=== PATIENT | female | born 1980 | race Caucasian/White ===

== ENCOUNTER 2017-08-17 08:39 | Day surgery (SDC) | payer OTHER ==
[2017-08-13 09:47] VITALS: BMI 30.2
[~2017-08-17 08:39] MED LIST: BUPIVACAINE HCL/PF 0.5% (5MG/ML) 10 ML VIAL PNB ONE
[2017-08-17] MEDS ORDERED: BUPIVACAINE HCL/PF 0.5% (5MG/ML) 10 ML VIAL ONE (09:34)
--- NOTE | 2017-08-17 09:36 | HP ---
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: Alzheimer's, CVA, Dementia, Migraine, Multiple Sclerosis, Peripheral Neuropathy, Parkinson's, Seizure, Syncope, TIA, Vertigo, Other Cardiovascular: Yes: Murmur Pulmonary: Yes: Bronchitis Gastrointestinal: No: Ascites, Cancer, Constipation, Crohn's Disease, Diverticulitis, Diverticulosis, Esophageal Varices, Gastritis, GERD, GI Bleed, Hemorrhoids, Hiatal Hernia, Inflamatory Bowel Disease, Irritable Bowel Disease, Pancreatitis, Peptic Ulcer Disease, Ulcerative Colitis, Other Hepatobiliary: No: Cirrhosis, Cholelithiasis, Cholecystitis, Choledocholithiasis , Hepatitis A, Hepatitis B, Hepatitis C, Other Renal/: No: Renal Failure, Renal Inusuff, BPH, Cancer, Hematuria, Hemodialysis , Neurogenic Bladder, Renal Calculi, UTI, Other Reproductive: Yes: Ectopic (tx's with MTX) ...Para: 1 ...Induced : 2 Heme/Onc: No: Anemia, B12 Deficiency, Bleeding Disorder, Cancer, Current Chemotherapy, Current Radiation Therapy, Hemochromatosis, Hypercoaguable State, Myeloproliferative Synd, Sickle Cell Disease, Sickle Cell Trait, Thrombocytopenia, Other Infectious Disease: No: AIDS, C-Diff, Herpes Zoster, HIV, MRSA, STD's, Tuberculosis, VREF, Other Psych: No: Addictions, Anxiety, Bipolar, Depression, Panic, Psychosis, Schizophrenia, Other Musculoskeletal: No: Bursitis, Chronic low back pain, Hemiparesis, Hemiplegia, Osteoarthritis, Paraplegia, Other Rheumatology: No: Fibromyalgia, Gout, Lupus, Rheumatoid Arthritis, Sarcoidosis, Vasculitis, Other ENT: No: Allergic Rhinitis, Sinusitis, Other Endocrine: No: [place]'s Disease, [place]'s Disease, Diabetes Insipidus, Diabetes Mellitus, Hyperparathyroidism, Hyperthyroidism, Hypothyroidism, Osteopenia, SIADH, Other Dermatology: No: Basal Cell, Cellulitis, Eczema, Melanoma, Psoriasis, Squamous Cell, Other Additional Medical History: Hyperlipidemia - Past Surgical History Past Surgical History: Yes: Hx Myomectomy: No Hx Transabdominal Cerclage: No - Smoking History Smoking history: Current some day smoker Have you smoked in the past 12 months: Yes Aproximately how many cigarettes per day: 5 - Alcohol/Substance Use Hx Alcohol Use: Yes (WINE) History of Substance Use: reports: None - Social History Usual Living Arrangement: Yes: With Parent, With Child ADL: Independent Occupation: Unemployed History of Recent Travel: No Home Medications - Allergies Allergies/Adverse Reactions: Allergies Allergy/AdvReac Type Severity Reaction Status Date / Time No Known Drug Allergies Allergy Verified 08/17/17 09:19 - Home Medications Home Medications: Ambulatory Orders NK [No Known Home Medication] 08/13/17 Family Disease History - Family Disease History Family Disease History: Other: Mother (endometriosis, Hep C) Review of Systems - Review of Systems Constitutional: reports: No Symptoms Eyes: reports: No Symptoms HENT: reports: No Symptoms Neck: reports: No Symptoms Cardiovascular: reports: No Symptoms Respiratory: reports: No Symptoms Gastrointestinal: reports: No Symptoms Genitourinary: reports: No Symptoms Breasts: reports: No Symptoms Reported Musculoskeletal: reports: No Symptoms Integumentary: reports: No Symptoms Neurological: reports: No Symptoms Endocrine: reports: No Symptoms Hematology/Lymphatic: reports: No Symptoms Psychiatric: reports: No Symptoms Pain Intensity: 2 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 Vital Signs: Vital Signs Temperature 98.7 F 08/17/17 09:17 Pulse Rate 87 08/17/17 09:17 Respiratory Rate 16 08/17/17 09:17 Blood Pressure 114/76 08/17/17 09:17 O2 Sat by Pulse Oximetry (%) 97 08/17/17 09:18 Constitutional: Yes: Well Nourished, No Distress, Calm Eyes: Yes: WNL, Conjunctiva Clear HENT: Yes: WNL, Atraumatic, Normocephalic Neck: Yes: WNL, Supple, Trachea Midline Cardiovascular: Yes: WNL, Regular Rate and Rhythm Respiratory: Yes: WNL, Regular, CTA Bilaterally Gastrointestinal: Yes: WNL, Normal Bowel Sounds, Soft ...Rectal Exam: Yes: WNL Renal/: Yes: WNL Pelvis: Yes: WNL External Genitalia: Yes: Normal Internal Exam Deferred: No Cervix: Yes: Normal Uterus: Yes: Normal Adnexa: Normal: Right, Left Musculoskeletal: Yes: WNL Extremities: Yes: WNL Edema: No Integumentary: Yes: WNL Neurological: Yes: WNL, Alert, Oriented ...Motor Strength: WNL Psychiatric: Yes: WNL, Alert, Oriented Imaging - Results Ultrasound: Report Reviewed Assessment/Plan 37yo P1 female with left pelvic pain, admitted for left ovarian cystectomy. We had discussed the risks, benefits, alternatives of surgery at length including but not limited to infection, bleeding, scarring, perforation, amenorrhea, infertility, hysterectomy, injury to surrounding/underlying organs or structure , need for additional surgery to repair/treat any complications, etc. I explained the risk and possible oophorectomy, recurrent cysts, open laparotomy. The patient verbalized understanding and requested to proceed with surgery. I emphasized that all surgeries have risks and no guarantees can be provided.
[2017-08-17] MEDS ORDERED: LIDOCAINE HCL/PF 2% SDV 5ML VIAL ONE (09:38)
[2017-08-17] MEDS ORDERED: DEXAMETHASONE SOD PHOSPHATE 4 MG/1 ML VIAL ONE ×2 (09:38→11:25)
[2017-08-17] MEDS ORDERED: MIDAZOLAM HCL 2 MG/2 ML SINGLE DOSE VIAL ONE (09:39)
[2017-08-17] MEDS ORDERED: ROCURONIUM BROMIDE 50 MG/5 ML VIAL ONE (09:39)
[2017-08-17] MEDS ORDERED: PROPOFOL 20 ML ONE (09:39)
[2017-08-17] MEDS ORDERED: BUPIVACAINE HCL/PF 0.5% (5MG/ML) 10 ML VIAL PNB ONE (10:30)
[2017-08-17] MEDS ORDERED: PHENYLEPHRINE HCL 10 MG/1 ML SINGLE DOSE VIAL ONE (10:39)
[2017-08-17] MEDS ORDERED: ceFAZolin SODIUM 1 GM VIAL IVPB ONE (10:45)
[2017-08-17] MEDS ORDERED: NEOSTIGMINE METHYLSULFATE 0.5 MG/ML - 10 ML MDV ONE (11:24)
[2017-08-17] MEDS ORDERED: GLYCOPYRROLATE 0.2 MG/1 ML VIAL ONE (11:25)
[2017-08-17] MEDS ORDERED: oxyCODONE HCL 5 MG TABLET PO PRN (11:46)
[2017-08-17] MEDS ORDERED: ONDANSETRON 4 MG/2 ML VIAL IVPUSH PRN (11:46)
[2017-08-17] MEDS ORDERED: MIDAZOLAM HCL 2 MG/2 ML SINGLE DOSE VIAL IVPUSH ONE (11:47)
--- NOTE | 2017-08-17 11:54 | OP ---
Operative Note - Note: Operative Date: 08/17/17 Pre-Operative Diagnosis: Pelvic pain, left ovarian cyst Operation: Laparoscopic left ovarian cystectomy, lysis of adhesions Findings: Simple left ovarian cyst. Omental adhesions to anterior abdominal wall. Uterus adherent to anterior abdominal wall. Normal Fallopian tubes bilaterally. Normal right ovary. 2cm left fundal pedunculated myoma Post-Operative Diagnosis: Same as Pre-op Surgeon: Kaiden Cox Violent Crimes Detective: Gabe Arriaga Anesthesiologist/INSIDE SALES ACCOUNT MANAGER: Moi Garvey Anesthesia: General Specimens Removed: Left ovarian cyst Estimated Blood Loss (mls): 10 Drains & Tubes with Location: Lutz Catheter Drains, Volume Out (mls): 50 Blood Volume Replaced (mls): 0 Fluid Volume Replaced (mls): 1,000 Operative Report Dictated: Yes
[2017-08-17] MEDS ORDERED: LACTATED RINGERS SOLUTION 1,000 ML IV SCH (12:00)
[2017-08-17] MEDS ORDERED: oxyCODONE HCL 5 MG TABLET ONE (13:25)
[2017-08-17 14:36] VITALS: BP 106/62; PULSE 61; TEMP 98.1
--- NOTE | 2017-08-17 21:34 | OP ---
DATE OF OPERATION: 08/17/2017 PREOPERATIVE DIAGNOSES: Pelvic pain, left ovarian cyst. POSTOPERATIVE DIAGNOSES: Pelvic pain, left ovarian cyst, pelvic adhesions, pedunculated left uterine fibroid, approximately 2 cm. SURGEON: Kaiden Cox MD AUTOMOTIVE PRODUCT ENGINEER: Gabe Arriaga MD ANESTHESIOLOGIST: Moi Garvey MD ANESTHESIA: General. COMPLICATIONS: None. ESTIMATED BLOOD LOSS: 10 mL INTRAVENOUS FLUIDS: 1000 mL URINE OUTPUT: 50 mL of clear urine at the end of the procedure. PATHOLOGY: Left ovarian cyst. FINDINGS: Examination under anesthesia revealed normal anteverted uterus with no pelvic or adnexal masses. Laparoscopy revealed multiple dense adhesions between the omentum and the anterior abdominal wall. The uterus was also densely adherent to the anterior abdominal wall. The left ovary contained a simple left ovarian cyst with clear straw-colored fluid. The right ovary was normal and unremarkable. Both fallopian tubes were normal. The uterus contained a 2-cm left fundal pedunculated myoma. DESCRIPTION OF PROCEDURE: The patient was met preoperatively. Risks, benefits, and alternatives of surgery were discussed. All questions were answered. The patient was brought to the OR with the IV running. She was placed on a surgical table in a supine position. The general endotracheal anesthesia was achieved without difficulty. The patient was then placed in a dorsal lithotomy position using adjustable Terrance stirrups. She was prepped and draped in the usual sterile fashion. Examination under anesthesia was performed with the findings as described above. A timeout procedure was conducted as per standard protocol. A Lutz catheter was inserted inside the bladder and left to drain to gravity. A HUMI uterine manipulator was introduced inside the uterus without complications. The surgeons then proceeded with the operation. A 5-mm incision was made inside the umbilicus. A Veress needle was introduced through the umbilical incision into the peritoneal cavity. Intraperitoneal placement was confirmed. Pneumoperitoneum was then produced using CO2 gas with intraabdominal pressure limited to 15 mmHg. The Veress needle was then removed, and a 5-mm trocar was placed through the umbilical incision. A laparoscope was inserted through the umbilical trocar. Atraumatic placement was confirmed. Survey of the abdomen and peritoneal cavity revealed findings as described above. The liver, bowel, and visualized portion of the stomach were within normal limits. A second 5-mm incision was made with a knife in the left lower quadrant. A 5-mm trocar was advanced through that incision under direct visualization. An 11-mm incision was then made with the knife in the right lower quadrant, and an 11-mm trocar was advanced through that incision under direct visualization. The left ovary was then grasped with atraumatic grasper. The ovary was incised just above the left ovarian cyst. The ovarian parenchyma was then dissected away from the underlying cyst capsule. The ovarian cyst was then excised completely from the left ovary. The cyst was ruptured in the course of the removal, and a clear straw-colored fluid was noted. The cyst was then removed from the abdomen and sent to Pathology for evaluation. The left ovary was irrigated with copious amounts of normal saline. The cautery was used judiciously to obtain excellent hemostasis. Once good hemostasis was confirmed, FloSeal was also used inside the ovary for assured hemostasis. The fluid was then aspirated from the patient's abdomen. Once again, excellent hemostasis was noted. The 10-mm incision was then closed using a 2-0 Vicryl suture for the fascia. All of the instruments were removed from the patient. Sponge, lap, and instrument counts were correct. The skin incisions were closed using a 4-0 Biosyn suture with good hemostasis and approximation. Lutz catheter and HUMI were removed from the patient. The patient was returned to supine position. The patient was transferred to recovery room awake and in stable condition. Kristyn [id number]
--- NOTE | 2017-08-18 15:17 | PATH ---
Surgical Pathology Report Patient Name: MAGGIE ROBIN [facility]. Rec. #: [id number] /Age/Gender: 1980 (Age: 37) / F Account: [id number] Location: [facility] SURGICAL Taken: 08/17/2017 Received: 08/17/2017 Reported: 08/18/2017 Physicians: Kaiden Cox M.D. Specimen(s) Received LEFT OVARIAN CYST Clinical History Left ovarian cyst Final Diagnosis OVARIAN CYST, LEFT, LAPAROSCOPIC CYSTECTOMY: CYST WALL CONSISTENT WITH SEROUS CYSTADENOMA. Electronically Signed Karyna Nielsen M.D. Gross Description Received in formalin labeled "left ovarian cyst," is a 3.5 x 1.4 x 0.2 cm portion of norman-pink soft tissue, possibly consistent with a disrupted cyst. The specimen is serially sectioned and entirely submitted in 2 cassettes. /08/17/2017 saudi/08/17/2017
== END 2017-08-17 14:46 | disposition home or self-care (01) ==
LOC: JASU-SURG 08:39
PROVIDERS: ATTEND Obstetrics & Gynecology
PROC: 0UB14ZZ Excision of Left Ovary, Percutaneous Endoscopic Approach (ICD-10-PCS; principal; 2017-08-17 10:00)
DX: N83.292 Other ovarian cyst, left side (principal); N73.6 Female pelvic peritoneal adhesions (postinfective); D25.9 Leiomyoma of uterus, unspecified
CPT/HCPCS: 36415; 84703; 86850; 86900; 86901; 88307-TC; 94010; 94760